=== PATIENT | male | born 1950 | race Caucasian/White ===

== ENCOUNTER 2019-09-01 11:47 | Observation (INO) | payer MEDICARE ==
[2019-09-01 15:26] VITALS: BMI 20.1
[2019-09-01] MEDS ORDERED: Ondansetron ODT 4 MG TAB SL PRN (15:26)
[2019-09-01] MEDS ORDERED: Ondansetron PF 4 MG/2 ML Vial IVP PRN ×2 (15:26→17:42)
[2019-09-01] MEDS ORDERED: Ketorolac Tromethamine 30 MG/ML VIAL IVP SCH (17:30)
[2019-09-01] MEDS ORDERED: Benzonatate 100 MG CAP PO PRN (17:42)
[2019-09-01] MEDS ORDERED: hydrALAZINE 20 MG/ML VIAL SLOW IVP PRN (17:42)
[2019-09-01] MEDS ORDERED: Ondansetron ODT 4 MG TAB PO PRN (17:42)
[2019-09-01] MEDS ORDERED: Acetaminophen 500 MG TAB PO PRN (17:42)
[2019-09-01] MEDS: Sodium Chloride 0.9% 1,000 ML IV SCH (18:47)
[2019-09-01] MEDS: HYDROcodone/Acetaminophen 5/325 mg Tablet PO PRN ×2 (18:47→22:40)
[2019-09-01] MEDS: Ketorolac Tromethamine 30 MG/ML VIAL IVP SCH ×2 (18:48→23:49)
--- NOTE | 2019-09-01 19:22 | HP ---
PRIMARY CARE PROVIDER: Jose Brooks. CHIEF COMPLAINT: Chest and right upper extremity pain. HISTORY OF PRESENT ILLNESS: This is a 68-year-old male, who presents to [facility] Emergency Department complaining of progressive and severe right shoulder, upper and chest wall pain. The patient states he noticed pain over the last several weeks, increasing in intensity and severity, not amenable to tbuy-pap-somapxa medications. The patient states he took an old prescription of Mcbee which was prescribed to him after a hernia repair in 2019. The patient had some relief with Mcbee, but was unable to sleep lying on his back and had to sit upright due to the pain. The patient denied any direct trauma injury, fall, or swelling. 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 The patient admits to unintended weight loss of 20 to 30 pounds since the late fall of 2018. The patient states he noticed the weight loss with associated shortness of breath, but no hematuria, hemoptysis, or melena. The patient denied any documented fever, chills, or family members with similar symptoms. The patient denied any specific travel history or exposures. The patient noted burning sensation in the right upper chest and upper back, worse when lying flat or taking deep breath. In the emergency room, the patient underwent plain radiographs of the shoulder as well as CT of the chest showing large tumors at the upper right chest wall, right hilar region and right adrenal. The patient received IV Toradol and morphine sulfate and was referred to the Hospitalist Service for further evaluation. PAST MEDICAL HISTORY: 1. Chronic hepatitis B and C without current treatment. 2. History of basal cell carcinoma. PAST SURGICAL HISTORY: 1. Status post inguinal hernia repair in 2019. 2. Status post multiple skin cancer removals. CURRENT MEDICATIONS: Mcbee 5/325 mg 1 to 2 tablets p.o. q.6 hours p.r.n. pain. ALLERGIES: NO KNOWN DRUG ALLERGIES. FAMILY HISTORY: Mother with history of inoperable brain cancer of unknown type. Father with history of pancreatic cancer. The patient's son with history of gastric cancer. SOCIAL HISTORY: The patient resides in [place], [place]. 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 . No current alcohol, tobacco, or illicit drug use. Quit smoking in the 1970s after smoking for approximately 20 years. REVIEW OF SYSTEMS: CONSTITUTIONAL: Negative for weight loss or gain, ability to conduct usual activities. SKIN: Negative for rash, itching. EYES: Negative for double vision, pain. ENT/MOUTH: Negative for nose bleeding, neck stiffness, pain, tenderness. CARDIOVASCULAR: Negative for palpitations, dyspnea on exertion, orthopnea. RESPIRATORY: Negative for shortness of breath, wheezing, cough, hemoptysis, fever or night sweats. GASTROINTESTINAL: Negative for poor appetite, abdominal pain, heartburn, nausea, vomiting, constipation, or diarrhea. GENITOURINARY: Negative for urgency, frequency, dysuria, nocturia. MUSCULOSKELETAL: Negative for pain, swelling. NEUROLOGIC/PSYCHIATRIC: Negative for anxiety, depression. ALLERGY/IMMUNOLOGIC: Negative for skin rash, bleeding tendency. Otherwise negative except as stated per HPI. PHYSICAL EXAMINATION: VITAL SIGNS: On admission, blood pressure 158/98, pulse 82, respiratory rate 16, temperature 98.2 degrees Fahrenheit, and O2 saturation 98% on room air. GENERAL APPEARANCE: This is a 68-year-old male, alert and oriented x3, pleasant, responsive, in no acute distress. HEENT: Pupils are equal, round, reactive to light and accommodation. Extraocular muscles are intact. No scleral icterus. No conjunctival injection. Nares are patent. OP is clear. Teeth in good repair. NECK: Supple. No cervical adenopathy. No thyromegaly. No carotid bruits. No JVD appreciated. Cervical spine with full active and passive range of motion. No meningeal signs noted. CHEST: Coarse breath sounds with diminished air flow in the right base and right upper lobe. Occasional expiratory wheeze in the right hemithorax. CARDIOVASCULAR: S1, S2 without noted murmur, rub, or gallop. ABDOMEN: Rounded, soft, nontender, and nondistended. Bowel sounds are positive in all 4 quadrants. There is no hepatosplenomegaly. No abdominal bruits. No rebound or guarding appreciated. EXTREMITIES: Warm and dry with fair turgor. No clubbing, cyanosis, or asymmetric edema appreciated. Pulses palpable distally at the dorsalis pedis, posterior tibial, and popliteal arteries bilaterally. Capillary refill less than 2 seconds. NEUROLOGIC: Cranial nerves 2 through 12 are grossly intact. No focal or lateralizing signs appreciated. MUSCULOSKELETAL: Positive tenderness to palpation in the right upper chest wall anteriorly. PERTINENT LABORATORY AND X-RAY FINDINGS: Sodium 137, potassium 4.0, chloride 100, CO2 of 27, BUN 12, creatinine 0.88, estimated GFR of 86, glucose 123, lactic acid level 0.9, calcium 11.6. LFTs within normal limits. Albumin 4.1. CBC showed a white blood cell count of 29.8, hemoglobin 12, hematocrit 36, platelet count 757 with 74% neutrophils. Three views of the right shoulder dated 09/01/2019 showed pleural-based large right upper lobe pulmonary mass with possible cavitation and adjacent lesion of the right mediastinum. No fracture of the shoulder. CT of the chest dated 09/01/2019 showed stage IV malignant neoplasm of the upper lobe of the right lung with large right upper lobe lateral pleural-based necrotic mass with direct invasion of the right second rib and right chest wall musculature. Right hilar malignant neoplastic tumor noted. Right adrenal necrotic mass. ASSESSMENT AND PLAN: 1. Multiple lung neoplasms. Suspect stage IV lung carcinoma, given CT imaging. We will obtain CT-guided biopsy to define the pathology and for planning of treatment options. Consult Medical Oncology Service. Symptomatic management with Toradol 30 mg IV q.6 hours and morphine sulfate 4 mg IV q.4 hours p.r.n. Add DuoNeb q.4 hours. 2. Chest wall pain. Secondarily to #1. Continue symptomatic and supportive management as outlined previously. 3. Dyspnea. Secondarily to #1. We will provide oxygen p.r.n. to maintain O2 saturations greater than or equal to 90%. Bronchodilator therapy with DuoNeb. 4. Hypercalcemia. Secondarily to #1. We will continue intravenous normal saline at 100 mL/h and repeat calcium level in the a.m. 5. Normocytic anemia. Suspect secondarily to #1. No evidence of acute blood loss. Serial hemoglobin and hematocrit monitoring. 6. Prophylaxis. SCDs while in bed. Pepcid 20 mg p.o. b.i.d. 7. Code status is full. Surrogate medical decision maker is the patient's spouse. Job ID: [id number]
[2019-09-01] MEDS: Famotidine 20 MG TAB PO SCH (20:14)
[2019-09-02] MEDS: HYDROcodone/Acetaminophen 5/325 mg Tablet PO PRN ×3 (03:03→20:18)
[2019-09-02] MEDS: Sodium Chloride 0.9% 1,000 ML IV SCH ×3 (04:58→16:39)
[2019-09-02] MEDS: Ketorolac Tromethamine 30 MG/ML VIAL IVP SCH ×4 (05:46→23:26)
[2019-09-02 07:17] LABS: Mean Corpuscular Hemoglobin 26.6 pg (27.0-31.0); Mean Corpuscular Volume 80.5 fL (78.0-98.0); Mean Platelet Volume 6.6 fL (7.4-10.4); Platelet Count 637 thou/uL (130-400); Red Blood Cell (RBC) Count 3.77 mill/uL (4.70-6.10); White Blood Cell (WBC) Count 22.9 thou/uL (4.8-10.8)
[2019-09-02 07:22] LABS: INR-International Normal Ratio 1.1; PTT 33.8 SEC (22.9-36.1); Prothrombin Time 14.2 SEC (12.0-14.7)
[2019-09-02 07:35] LABS: Anion Gap 11 mmol/L (10-20); BUN (Urea Nitrogen) 15 mg/dL (8.4-25.7); Calc. Creatinine Clearance 78 mL/min (70-130); Calcium 10.4 mg/dL (7.8-10.44); Carbon Dioxide 26 mmol/L (23-31); Chloride 104 mmol/L (98-107); Estimated GFR-MDRD 88; Glucose 107 mg/dL (80-115); Potassium 3.9 mmol/L (3.5-5.1); Sodium 137 mmol/L (136-145)
[2019-09-02 07:50] LABS: Band 10 % (5-11); Eosinophils 6 % (0-10); Lymphocytes 7 % (21-51); MDiff Complete? YES; Monocytes 9 % (0-10); Neutrophil 67 % (42-75); Nucleated RBC 1 % (0); Platelet Morphology Comment Appears Increased; Polychromasia SLIGHT = 2-3 cells (100X) (0-2/hpf)
[2019-09-02] MEDS ORDERED: Midazolam HCl 2 mg/2 ml Vial ONE (08:30)
[2019-09-02] MEDS ORDERED: Fentanyl 100 MCG/2 ML VIAL ONE (08:30)
[2019-09-02] MEDS ORDERED: Sodium Bicarbonate 2.5 MEQ/5 ML VIAL ONE (08:30)
[2019-09-02] MEDS: Famotidine 20 MG TAB PO SCH ×2 (08:31→20:17)
[2019-09-02] MEDS: Morphine 4 MG/ML VIAL SLOW IVP PRN (08:34)
--- NOTE | 2019-09-02 10:45 | RAD ---
Exam: INSPIRATORY CHEST RADIOGRAPH AND EXPIRATORY CHEST RADIOGRAPH: HISTORY: Status post right upper lobe biopsy. Evaluate for pneumothorax. FINDINGS: Upright portable inspiratory and expiratory chest radiograph demonstrate emphysematous ovi nges. Right upper lobe mass is noted. No pneumothorax or acute osseous abnormalities. IMPRESSION: No pneumothorax. Transcribed Date/Time: 09/02/2019 10:59 AM
--- NOTE | 2019-09-02 11:30 | CT ---
CT abdomen and pelvis without and with IV contrast HISTORY: Lung cancer. Adrenal mass. FINDINGS: Small hiatal hernia. Calcified granulomata are consistent with healed granulomatous disease . A 1.8 cm oval cyst is present within the lower anterior margin of the medial segment right liver lobe. Calcification throughout the arterial structures. Hyperdense material within the dependent portion of the gallbladder lumen has the appearance of hyper dense fluid rather than biliary sludge. Possibly related to prior iodine ingestion. A large, somewhat irregular shaped and lobulated very heterogeneous enhancing solid mass of the right adrenal gland is 7.4 cm greatest length by 7.1 cm depth by 3.4 cm with. Left adrenal gland has a normal appearance. Urinary bladder is decompressed. Diverticula arise from the colon without adjacent inflammation. Larg e amount stool is present within the colon. IMPRESSION : Large aggressive right adrenal mass, consistent with a metastatic lesion. Constipation. Diverticulosis. No evidence of diverticulitis. Atherosclerosis. Small hiatal hernia.
--- NOTE | 2019-09-02 13:43 | NM ---
NUCLEAR MEDICINE WHOLE BODY SCAN: HISTORY: Lung cancer. Weight loss. Staging study. TECHNIQUE: Patient was administered 28.90 mCi of technetium 99m MDP intravenously. Whole body delayed imaging is performed. FINDINGS: Physiologic distribution of radiotracer. Uptake in bilateral shoulders, bilateral wrists, bilateral knees and the right first metatarsal phala ngeal joint on the basis of degenerative change. There is focal radiotracer involving the anterior lateral right second rib. Uptake corresponds to ovi nges noted on chest CT (08/31/2017). There is bone destruction compatible with metastatic disease. Additional metastatic lesions in the right ribs are not noted. Uptake in the distal lumbar spine is felt to be on the basis of degenerative change given vacuum disc phenomenon and osteophyte formation at L4-L5 and L5-S1. IMPRESSION: Solitary metastatic focus involving the anterior lateral right second rib. Transcribed Date/Time: 09/02/2019 1:48 PM
--- NOTE | 2019-09-02 14:07 | RAD ---
INSPIRATORY AND EXPIRATORY CHEST: Date: 09/02/2019 HISTORY: Post lung biopsy. COMPARISON: 09/02/2019 at 1038 hours. FINDINGS: Large cavitary pleural based right upper lobe mass is again seen with persistent irregular-shaped mas s in the right hilar and suprahilar region. Bullous emphysematous changes at each lung apex are again present. Calcified granuloma left mid lung zone is present. Left lung otherwise appears clear. No pn eumothorax or pleural effusion is identified. IMPRESSION: 1. Stable chest without evidence of a pneumothorax or pleural effusion. 2. Right upper lobe masses persist. POS: [facility]
--- NOTE | 2019-09-02 16:22 | PDOC.HOSPP ---
- Subjective Encounter Date: 09/02/19 Encounter Time: 16:00 Subjective: f/u for suspected metastatic lung carcinoma with involvement of R adrenal s/p CT -guided bx today. Feels ok overall and awaiting MRI brain for staging purposes. - Objective Vital Signs & Weight: Vital Signs (12 hours) Temp Pulse Resp BP Pulse Ox 09/02/19 12:09 98 F 87 18 144/71 H 99 09/02/19 08:29 97.5 F L 74 18 117/67 98 Weight Admit Weight 148 lb 4.8 oz Weight 148 lb 4.8 oz I&O: 09/01/19 09/02/19 09/03/19 06:59 06:59 06:59 Intake Total 2072 120 Balance 2072 120 Result Diagrams: 09/02/19 07:08 09/02/19 07:08 Radiology Reviewed by me: Yes (CT abd/pel - Large R adrenal mass) Hospitalist ROS - Medication Medications: Active Medications Generic Name Dose Route Start Last Admin Trade Name Freq PRN Reason Stop Dose Admin Hydrocodone Bitart/Acetaminophen 1 tab 09/01/19 17:42 09/01/19 18:47 [place] 5/325 PO 1 tab Q4H PRN Administration Moderate Pain (4-6) Hydrocodone Bitart/Acetaminophen 2 tab 09/01/19 17:42 09/02/19 03:03 [place] 5/325 PO 2 tab Q4H PRN Administration Severe Pain (7-10) Famotidine 20 mg 09/01/19 21:00 09/02/19 08:31 Pepcid PO 20 mg BID LANIE Administration Sodium Chloride 1,000 mls @ 100 mls/hr 09/01/19 17:45 09/02/19 04:58 Normal Saline 0.9% IV 1,000 mls .Q10H LANIE Administration Ketorolac Tromethamine 30 mg 09/01/19 18:00 09/02/19 11:22 Toradol IVP 09/06/19 18:01 30 mg Q6HR LANIE Administration Morphine Sulfate 4 mg 09/01/19 17:42 09/02/19 08:34 Morphine SLOW IVP 4 mg Q4H PRN Administration Moderate to Severe Pain (6-10) - Exam General Appearance: NAD, awake alert Eye: PERRL, anicteric sclera ENT: normocephalic atraumatic, no oropharyngeal lesions Neck: supple, symmetric, no JVD, no thyromegaly Heart: RRR, no murmur, no gallops, no rubs, normal peripheral pulses Heart - other findings: S1, S2 Respiratory: CTAB, no wheezes, no rales, no ronchi, normal chest expansion Gastrointestinal: soft, non-tender, non-distended, normal bowel sounds, no palpable masses Extremities: no cyanosis, no clubbing, no edema Skin: normal turgor, no lesions Neurological: cranial nerve grossly intact, no new deficit Musculoskeletal: normal tone, normal strength Psychiatric: normal affect, A&O x 3 Hosp A/P (1) Metastatic lung carcinoma Code(s): C78.00 - SECONDARY MALIGNANT NEOPLASM OF UNSPECIFIED LUNG Status: Acute Qualifiers: Laterality: right Qualified Code(s): C78.01 - Secondary malignant neoplasm of right lung Plan: Suspected and awaiting pathological confirmation, workup pending with MRI brain in am, planning for outpt medical oncology f/u (2) Chest wall pain Code(s): R07.89 - OTHER CHEST PAIN Status: Acute Plan: Secondary to #1, pain control (3) Dyspnea Code(s): R06.00 - DYSPNEA, UNSPECIFIED Status: Acute Plan: Secondary to #1, no O2 requirement currently (4) Hypercalcemia Code(s): E83.52 - HYPERCALCEMIA Status: Acute Plan: Improved with IVF's, continue IVF's another 24h then d/c - 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
--- NOTE | 2019-09-02 17:26 | CON ---
DATE OF CONSULTATION: REASON FOR CONSULTATION: Lung mass. HISTORY OF PRESENT ILLNESS: Mr. Card is a very pleasant 68-year-old gentleman who presented to the emergency room in [place] with a several-week history of right shoulder blade and chest wall pain. He thought it was due to injury from working. The pain got significantly worse, so he presented to the ER for evaluation. He had a chest x-ray, which showed multiple lung nodules and underwent a chest CT scan. CT scan showed a 6.5 x 6.5 x 4.5 mass in the right upper lobe. There was another mass in the right hilum abutting the right mediastinum, measuring 6 x 3.5 x 4.5. It was extrinsically compressing and narrowing the superior vena cava. He also had a 5.5 x 3.5 x 6.5 right adrenal mass. He was transferred to this facility for further workup. He underwent a CT of the abdomen and pelvis, which again confirmed the large right adrenal mass. Bone scan showed a lesion in the right rib. He has been treated with Toradol and [place] for pain. He has had a lung biopsy this morning. This patient states he smoked briefly, but quit 45 years ago. He has lost 15 pounds over the last six months. Denies any shortness of breath, although he does have difficulty lying flat due to pain in his right shoulder. No abdominal discomfort or swelling. PAST MEDICAL HISTORY: 1. Chronic hepatitis B and C. 2. History of basal cell carcinoma. PAST SURGICAL HISTORY: 1. Skin cancer removals. 2. Inguinal hernia repair. ALLERGIES: NO KNOWN DRUG ALLERGIES. HOME MEDICATIONS: 1. Fayette p.r.n. 2. Milk thistle for hepatitis. FAMILY HISTORY: Mother had brain surgery. Son from gastric cancer. Father had pancreatic cancer. 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 Remote history of smoking and alcohol use. REVIEW OF SYSTEMS: A 10-point review of systems is negative except for noted in HPI. PHYSICAL EXAMINATION: VITAL SIGNS: Temperature is 98, pulse is 87, respiratory rate 18, BP is 144/71, and he is 99% on room air. GENERAL: This is a well-developed, well-nourished male, in no acute distress. HEENT: Normocephalic and atraumatic. Pupils equal and reactive to light. NECK: Supple. CV: Regular rate and rhythm. LUNGS: Clear anterior. ABDOMEN: Soft and nontender. Bowel sounds are positive. EXTREMITIES: There is no clubbing or cyanosis. SKIN: No rash. LYMPH: There is no palpable cervical or supraclavicular lymphadenopathy. NEUROLOGIC: Nonfocal. PERTINENT LABORATORY DATA AND X-RAYS: Current WBCs are 22.9, hemoglobin 10, hematocrit 30.3, and platelet count is 637,000. He has 67% neutrophils, 10% bands, and 7% lymphocytes. PT is 14.2, INR is 1.1, and PTT is 33.8. Sodium is 137, potassium 3.9, chloride 104, CO2 is 26, BUN is 15, creatinine is 0.87, and calcium is 10.4. Bilirubin is 0.4, AST is 12, ALT is 12, alkaline phosphatase is 109, serum total protein is 8.1, albumin 4.1, and globulin 4.0. Radiology per HPI. ASSESSMENT: 1. Metastatic disease, likely lung primary. 2. Extrinsic compression of a lower superior vena cava from lung mass. DISCUSSION: Case has been discussed with Dr. Springer. The patient's biopsy has been completed and path is currently pending. His pain has been controlled with [place] and Toradol. He does need a brain MRI to complete staging. We will order that for today or tomorrow. Once he is stable, he can be discharged home. We will discuss further with Dr. Springer if he needs radiation to his lung mass for palliation. Thank you for the consult. We will be happy to take care of this patient. Job ID: [id number]
[2019-09-03] MEDS: HYDROcodone/Acetaminophen 5/325 mg Tablet PO PRN ×2 (01:45→07:04)
[2019-09-03] MEDS: Morphine 4 MG/ML VIAL SLOW IVP PRN (02:24)
[2019-09-03] MEDS: Ketorolac Tromethamine 30 MG/ML VIAL IVP SCH (05:19)
[2019-09-03] MEDS: Sodium Chloride 0.9% 1,000 ML IV SCH (07:02)
[2019-09-03] MEDS ORDERED: Magnevist 469MG/ML 20 ML VIAL ONE (08:23)
[2019-09-03 08:44] VITALS: BP 136/74; TEMP 98.1
[2019-09-03] MEDS ORDERED: Lorazepam 2 MG/ML VIAL SLOW IVP SCH (09:15)
--- NOTE | 2019-09-03 10:23 | MRI ---
BRAIN MRI WITH AND WITHOUT IV CONTRAST: History: Stage 4 lung cancer. FINDINGS: There are some scattered chronic white matter ischemic changes. No mass effect or midline shift. No i ntra or extraaxial hemorrhage. No abnormal contrast enhancement. No evidence for acute infarct. Expec jan flow voids are present. Mild sinus mucosal congestion. IMPRESSION: Mild chronic white matter ischemic changes. No evidence for metastasis or other acute process. No ronny dence for acute infarct. POS: [facility]
[2019-09-03 11:31] LABS: Hemoglobin 9.7 g/dL (14.0-18.0); Mean Corpuscular HGB CONC 32.2 g/dL (32.0-36.0); Mean Corpuscular Hemoglobin 26.1 pg (27.0-31.0); Mean Platelet Volume 6.9 fL (7.4-10.4); Platelet Count 651 thou/uL (130-400); RBC Distribution Width 14.1 % (11.5-14.5); Red Blood Cell (RBC) Count 3.73 mill/uL (4.70-6.10)
[2019-09-03] MEDS: Famotidine 20 MG TAB PO SCH (11:41)
[2019-09-03 12:03] LABS: Eosinophils 5 % (0-10); Hypochromia SLIGHT = 6-15 cells (100X) (0-5/hpf); Lymphocytes 20 % (21-51); MDiff Complete? YES; Monocytes 4 % (0-10); Neutrophil 70 % (42-75); Platelet Morphology Comment Appears Increased
--- NOTE | 2019-09-03 20:39 | DIS ---
DATE OF ADMISSION: 09/01/2019 DATE OF DISCHARGE: 09/03/2019 REASON FOR HOSPITALIZATION: Right-sided upper chest pain. SIGNIFICANT FINDINGS: The patient was found to have a cavitary right upper lobe mass with extension to the adjacent pleura in addition to solitary focus of the anterior lateral right 2nd rib. PROCEDURES PERFORMED AND TREATMENTS RENDERED: The patient was admitted to the Oncology Unit for close management. The patient was seen and evaluated by Oncology, who dictated an appropriate plan of care. Please see full consultation notes and progress notes from oncologist for full details. The patient underwent a biopsy of the lungs on 09/02/2019. Please see full operative report from Dr. Aec Melchor on 09/02/2019 for details. Biopsy reported a technically successful biopsy of pleural-based component, right upper lobe mass, however, only necrotic material was obtained. Impression #2, technically successful biopsy of cavitary large right upper lobe mass. Adequate cellular material was obtained according to pathology results. Final pathology report is pending and report from Dr. Ace Melchor. Oncologist recommending that the patient was safe for discharge on 09/03/2019 with close followup in the outpatient setting. CONDITION ON DISCHARGE: Stable. SPECIFIC INSTRUCTIONS FOR THE PATIENT/FAMILY: 1. The patient recommended to follow up with primary care physician in the next 5 to 7 days. 2. The patient recommended to follow up with Oncology in the next 1 to 2 weeks. 3. The patient recommended to strictly follow the recommendations of Oncology for treatment of pulmonary lesion. 4. The patient recommended to take all medications as directed, to be re-evaluated by primary care physician and Oncology and adjusted as appropriate. 5. The patient recommended to return to acute care hospital immediately if signs or symptoms return, worsen, or any other new symptoms occur. TIME SPENT: Greater than 38 minutes spent coordinating care and discharge process for this patient. Job ID: [id number]
--- NOTE | 2019-09-07 14:01 | CT ---
PROCEDURE: CT Lung Perc Biopsy PROVIDED CLINICAL HISTORY: Cavitary right upper lobe mass with extension into the adjacent pleura. Biopsy was requested COMPARISON: CT thorax on 09/01/2019. TECHNIQUE: The procedure including the risks and complications were explained to the patient, and informed conse nt was obtained. The patient was placed on the CT scan table in the supine position. Limited noncontrasted CT scan was obtained through the right upper lung zones with grid localizer in place ov erlying the right anterolateral upper chest. An area overlying the pleural-based component of the large cavitary right upper lobe mass was marked, and the area was meticulously prepped and draped in usual sterile fashion. Skin and subcutaneous tissues were infiltrated with buffered 1% lidocaine for local anesthesia. A sma ll skin incision was made. A 17-gauge guide needle was advanced to the level of the pleural-based component of the large right upper lobe mass. Utilizing coaxial technique, three 18-gauge core needle biopsy specimens were obtained. However, only necrotic material was obtained on each biopsy. The needle was removed, and hemostasis was achieved with direct pressure. The skin and subcutaneous tissues just medial to the original biopsy site and overlying the right upp er lobe mass were infiltrated with buffered 1% lidocaine for local anesthesia. A small skin incision was made. A 17-gauge guide needle was advanced followed by axial noncontrasted CT images. Th is was repeated until the needle was placed just within the right upper lobe mass. A total of three 18-gauge core needle biopsy specimens were obtained. Pathologist was available for evaluation of the specimen and noted adequate cellular material. As result, no additional biopsy specimens were obtained. The needle was removed, and hemostasis was achieved with direct pressure. Follow-up CT scan thorax de monstrates no pneumothorax or findings to suggest hematoma. The patient tolerated the procedure well and without immediate complication. IMPRESSION: 1. Technically successful biopsy of pleural-based component large right upper lobe mass. However, onl y necrotic material and was obtained. 2. Technically successful biopsy of the cavitary large right upper lobe mass. Adequate cellular mater ial was obtained according to pathology results. Final pathology report is pending. Transcribed Date/Time: 09/07/2019 2:00 PM
== END 2019-09-03 12:30 | disposition home or self-care (01) ==
LOC: ERS 11:47 → ONC 12:38 → ERS 15:07 → ONC 15:07 → ERS 15:13
PROVIDERS: ADMIT Family Medicine; ATTEND Family Medicine
PROC: 0BBC3ZX Excision of Right Upper Lung Lobe, Percutaneous Approach, Diagnostic (ICD-10-PCS; principal; 2019-09-01)
DX: C34.11 Malignant neoplasm of upper lobe, right bronchus or lung (principal); E83.52 Hypercalcemia; D64.9 Anemia, unspecified
CPT/HCPCS: 32405; 70553; 71045; 71046; 74178; 77012; 78306; 80048; 85007 ×2; 85027 ×2; 85610; 85730; 88305; 88333; 88334; 88341; 88342; 96361 ×3; 96374; 96375 ×2; 96376 ×3; 99284; A9503; G0378 ×3; J1885 ×3; J2060; J2270 ×2; 36415; A9579; J2250; J3010